=== PATIENT | female | born 1985 | race Caucasian/White ===

== ENCOUNTER 2017-02-21 12:25 | Emergency (ER) | payer OTHER ==
[~2017-02-21] VITALS: Ht 165.1 cm; Wt 150.0 kg
[~2017-02-21 12:25] MED LIST: ALPR1TAB2 PO; BISA10SU61 RC; DICY10CA13 PO; EPIN0.3P2 IJ; IBUP800T28 PO; LACT10SO27 PO; MAGN296S PO; OXYC-284 PO; OXYC1TAB24 PO; PROM25SU47 RECTAL; SERT100T PO
[2017-02-21 12:38] VITALS: BP 150/91; PULSE 76; RESP 18; O2SAT 99
--- NOTE | 2017-02-21 12:51 | ED.REPORT ---
HPI-Abd Pain F Under 40 Date of Service Feb 21, 2017 ED Provider: Wai Cotton MD Patient is a 31 year old female who presents to the ED complaining of vaginal bleeding onset 6 days ago. Associated symptoms include fatigue and abdominal cramping that she states is worse than her normal menstrual cramps. Patient reports that the pain is exacerbated by coughing or pressure. She denies dizziness or lightheadedness. Patient states that her menstrual cycle started 6 days ago and she normally only goes through 1-3 pads. She has been going through 8 pads a day on this menstrual cycle. The patient reports that she has been experiencing irregular menstrual cycles for the past 5 months. She states that she has had normal pap smears following her cervical cancer and partial cervix reduction. She states that she is "allergic" to control medication and has a reaction that makes her "heart feel funny". Nursing Notes Stated Complaint: HEAVY BLEEDING Chief Complaint: Female Abdominal Pain Nursing Notes Reviewed: Yes Allergies: Coded Allergies: Penicillins (Verified Allergy, Severe, EXTREMELY ILL FROM BOTH ENDS SHE STATES, 02/21/17) desvenlafaxine succinate (Verified Allergy, Severe, "makes me crazy", ) clindamycin (Verified Allergy, Intermediate, nausea, vomiting, diarrhea, ) hydrocodone bitartrate (Verified Allergy, Intermediate, severe stomach cramps, 02/21/17) metoclopramide HCl (Verified Allergy, Intermediate, panic attack, 02/21/17) Cephalexin Monohydrate (Verified Allergy, Mild, diarrhea, nausea, 02/21/17) intolerance,not allergy Sulfa (Sulfonamide Antibiotics) (Verified Allergy, Unknown, N/V DIARRHEA, 02/21/17) amoxicillin trihydrate (Verified Allergy, Unknown, 02/21/17) hydrocodone (Verified Allergy, Unknown, GI SX, 02/21/17) latex (Verified Allergy, Unknown, RASH, 02/21/17) potassium clavulanate (Verified Allergy, Unknown, 02/21/17) Uncoded Allergies: HORMONES SYNTH (Allergy, Severe, HEART REACTION, 05/14/09) Scheduled Lactulose (Lactulose) 10 Gm/15 Ml Solution 10 GM PO TID take one tablespoon by mouth two times day for constipation Magnesium Citrate (Magnesium Citrate) 296 Ml Solution 296 ML PO ONCE Drink contents of one bottle by mouth Sertraline HCl (Zoloft) 100 Mg Tablet 300 MG PO DAILY Scheduled PRN Alprazolam (Xanax) 1 Mg Tablet 1 MG PO TID PRN PRN For Anxiety Bisacodyl (Dulcolax Rectal) 10 Mg Supp.rect 2 MG RC DAILY PRN PRN For Constipation Dicyclomine (Dicyclomine) 10 Mg Capsule 10 MG PO QID PRN PRN For GI Cramps Ibuprofen (Ibuprofen) 800 Mg Tablet 800 MG PO QID PRN PRN For Pain Ibuprofen (Ibuprofen) 800 Mg Tablet 800 MG PO TID PRN PRN For Pain Oxycodone HCl/Acetaminophen 5-325 (Percocet 5-325) 1 Each Tablet 1 EACH PO Q6- 8H PRN PRN For Pain Promethazine Supp (Promethazine Supp) 25 Mg Supp 25 MG RECTAL Q8H PRN PRN For Nausea oxyCODONE-Acetaminophen 5-325 mg (oxyCODONE-Acetaminophen 5-325 mg) 1 Each Tablet 2 TAB PO Q6H PRN PRN For Pain oxyCODONE-Acetaminophen 5-325 mg (oxyCODONE-Acetaminophen 5-325 mg) 1 Each Tablet 1-2 TAB PO Q6H PRN PRN For Pain Miscellaneous Medications Epinephrine (Epipen 2-Claudio) 0.3 Mg/0.3 Ml Auto.injct 0.3 MG IJ General Time Seen by MD: 12:41 Chief Complaint Vaginal bleeding Hx Obtained From: Patient Arrived By: Walk-in Sudden in Onset?: Yes Onset Occurred: 6 days ago Symptom Duration: Since onset Location: : Diffuse Quality: Cramping Recent Healthcare: No recent hospitalization Past Medical History Past Medical History Umbilical hernia kidney stones morbid obesity fibromyalgia PCOS Ovarian cyst cervical cancer HPV Reports: Hyperlipidemia Past Surgical History Partial cervix removed Reports: , Cholecystectomy, Tonsillectomy Family History Crohn's Disease- Father uterine cancer Smoking History Current Every Day Smoker Social History Alcohol Use: Denies alcohol use Drug Use: Denies drug use Ambulatory Status Independent Review of Systems Constitutional: Reports: Fatigue, Denies: Chills, Fever Respiratory: Denies: Non-productive cough, Shortness of breath GI: Reports: Abdominal pain, Denies: Nausea, Vomiting Female: Reports: Vaginal bleeding - abnl Complete sys rev & neg: except as marked. Skin: Denies Itching, Denies Rash Physical Exam Initial Vital Signs Vital Signs (First) Date Time Temp Pulse Resp B/P Pulse Ox O2 Delivery O2 Flow Rate FiO2 02/21/17 12:38 36.8 76 18 150/91 99 Room Air Initial VS: Reviewed General/Constitutional: Awake, Alert Appearance / Presentation: Positive: Obese Respiratory / Chest: Atraumatic, Breath sounds NL, Breath sounds = bilat, No respiratory distress Cardiovascular: Heart rate NL, Regular rhythm, Heart sounds NL, No murmurs Abdomen: Atraumatic, Soft, Non-tender Back: Atraumatic, No CVA tenderness Head / Eyes: Atraumatic, Normocephalic, PERRL, EOMI Skin: Atraumatic, Color NL, No rash, Warm, Dry Neurologic: Oriented X3, Speech NL, No motor deficits, No sensory deficits Psychiatric: Affect NL, Mood NL Interpretation & Diagnostics Lab Results Interpretation Result Diagram: 02/21/17 1258 02/21/17 1258 Test 02/21/17 12:58 White Blood Count 7.8th/mm3 (3.8-10.1) Red Blood Count 5.66mil/mm3 (3.90-5.20) Hemoglobin 15.5g/dL (12.0-15.6) Hematocrit 45.3% (35.0-46.0) Mean Corpuscular Volume 80.0fL (81-100) Mean Corpuscular Hemoglobin 27.4pg (27.0-35.0) Mean Corpuscular Hemoglobin Concent 34.2% (32.0-37.0) Red Cell Distribution Width 13.6% (12.3-15.4) Platelet Count 239bil/L (150-400) Neutrophils (%) (Auto) 66.1% (40-74) Lymphocytes (%) (Auto) 26.7% (14-46) Monocytes (%) (Auto) 5.3% (4-12) Eosinophils (%) (Auto) 1.7% (0-5) Basophils (%) (Auto) 0.1% (0-3) Sodium Level 138mEq/L (134-144) Potassium Level 3.9mEq/L (3.5-5.2) Chloride Level 99mEq/L (97-108) Carbon Dioxide Level 23mmol/L (18-29) Blood Urea Nitrogen 8mg/dL (6-20) Creatinine 0.70mg/dL (0.57-1.00) Estimat Glomerular Filtration Rate 139mL/min (>59) Glucose Level 107mg/dL (60-99) Calcium Level 8.6mg/dL (8.5-10.1) Total Bilirubin 0.2mg/dL (0.0-1.2) Aspartate Amino Transf (AST/SGOT) 20U/L (0-50) Alanine Aminotransferase (ALT/SGPT) 24U/L (0-32) Alkaline Phosphatase 65U/L (25-150) Total Protein 7.0g/dL (6.4-8.4) Albumin 4.1g/dL (3.4-5.0) Re-Eval/Medical Decision Med Decision/Clinical Course Med Decision/Clinical Course: 31-year-old female history of bilateral tubal ligation presenting complaining of heavy menstrual bleeding for several days. She reports no associated symptoms. Her hemoglobin is normal. Her vital signs are stable. She is here wondering if she has cervical cancer. She declined a pelvic exam. She refuses any hormone therapy. She will be treated with high-dose NSAIDs for her menorrhagia with plans to follow-up with [facility] later this week. She was given their phone number. Return precautions given. Re-Evaluation/Progress : Time of Eval: 14:00 Re-Evaluation/Progress Note: Discussed labs and plan for discharge. Patient understands and agrees to plan. All questions were addressed. Counseled Regarding: Diagnosis, Lab results, Need for follow-up, When/why to return to ED Discharge & Departure Primary Impression: Vagina bleeding Disposition: Home Discharge Condition All VS Reviewed: Yes Condition: Stable Additional Instructions: Your labs were normal and reassuring. I recommend trying a form of control for a few days but you declined this. You can take 800mg of ibuprofen every 8 hours. You should follow up with the referred OBGYN if your symptoms persist. Return to the emergency department if you develop any new or concerning symptoms including dizziness or feeling faint. Referrals: Dc Garcia MD (PCP) Julianne Nava MD [employer] Portions of this note were transcribed by Meghann Hammond. I, Dr. Cotton personally performed the history, physical exam and medical decision-making; I reviewed and confirmed the accuracy of the information in the transcribed note. Signed by: Michelle Garza, 02/21/17 copies to: Julianne Nava MD; Dc Garcia MD, Ben M MD Feb 21, 2017 12:51 Michelle Hammond Feb 21, 2017 13:00
[2017-02-21 13:17] LABS: Mean Corpuscular Hemoglobin 27.4 pg (27.0-35.0)
[2017-02-21 13:18] LABS: BASOPHILS % (AUTO) 0.1 % (0-3); EOSINOPHILS % (AUTO) 1.7 % (0-5); MONOCYTES % (AUTO) 5.3 % (4-12); NEUTROPHILS % (AUTO) 66.1 % (40-74); Platelet Count 239 bil/L (150-400)
[2017-02-21] MEDS ORDERED: 0.9% Sodium Chloride 1,000 ML IV ONE (13:19)
[2017-02-21] MEDS ORDERED: Ondansetron 2 mg/mL 2 mL Inj IVPUSH PRN (13:20)
[2017-02-21] MEDS ORDERED: IBUP800T28 PO (14:04)
[2017-02-21 14:36] VITALS: BP 108/70; PULSE 64; RESP 16; O2SAT 99
== END 2017-02-21 14:14 | disposition home or self-care (01) ==
LOC: SED 12:25
DX: N92.0 Excessive and frequent menstruation with regular cycle (principal); R53.83 Other fatigue; R10.9 Unspecified abdominal pain; E66.01 Morbid (severe) obesity due to excess calories; E28.2 Polycystic ovarian syndrome; F17.200 Nicotine dependence, unspecified, uncomplicated; E78.5 Hyperlipidemia, unspecified; Z87.442 Personal history of urinary calculi; Z68.43 Body mass index [BMI] 50.0-59.9, adult; Z85.41 Personal history of malignant neoplasm of cervix uteri; Z98.51 Tubal ligation status; Z88.0 Allergy status to penicillin; Z88.8 Allergy status to other drugs, medicaments and biological substances; Z88.1 Allergy status to other antibiotic agents; Z88.5 Allergy status to narcotic agent; Z88.2 Allergy status to sulfonamides
CPT/HCPCS: 80053; 81025; 85025; 99284; J7030

== ENCOUNTER 2017-03-12 21:20 | Emergency (ER) | payer OTHER ==
[~2017-03-12] VITALS: Ht 165.1 cm; Wt 150.0 kg
[2017-03-12 21:28] VITALS: BP 132/79; PULSE 75; RESP 16; O2SAT 99
== END 2017-03-12 23:44 | disposition left against medical advice (07) ==
LOC: SED 21:20
DX: Z53.21 Procedure and treatment not carried out due to patient leaving prior to being seen by health care provider (principal)